=== PATIENT | male | born 1990 | race American Indian/Alaskan Native ===

== ENCOUNTER 2016-05-30 15:46 | Emergency (ER) | payer SELFPAY ==
[2016-05-30 16:00] VITALS: BP 120/70
[2016-05-30] MEDS ORDERED: MOTRIN PO ONE (18:56)
[2016-05-30] MEDS ORDERED: NORCO 5/325 PO ONE (18:56)
--- NOTE | 2016-05-30 18:57 | Emergency Department Report ---
ED Upper Extremity Inj HPI - General Chief Complaint: Extremity Injury, Upper Stated Complaint: POSS BROKEN HAND Time Seen by Provider: 05/30/16 18:55 Source: patient Mode of arrival: Ambulatory Limitations: No Limitations - History of Present Illness Initial Comments: Patient reports right hand pain with swelling after he punched a wall last night Complaint: Injury to:: right Onset/Timin -: days(s) Other Extremity Injury: Hand: Right Other Injuries: none Handedness: right Place: home Severity scale (0 -10): 7 Improves With: immobilization Worsens With: movement of extremity Context: direct blow Associated Symptoms: denies other symptoms Treatments Prior to Arrival: other (none) - Related Data Previous Rx's Medication Instructions Recorded Last Taken Type Ibuprofen [Motrin 800 MG tab] 800 mg PO Q8HR PRN #30 tablet 05/30/16 Unknown Rx Allergies Allergy/AdvReac Type Severity Reaction Status Date / Time No Known Allergies Allergy Unverified 05/30/16 15:54 ED Review of Systems ROS: Stated complaint: POSS BROKEN HAND Other details as noted in HPI Constitutional: denies: chills, diaphoresis, fever, malaise, weakness Respiratory: denies: cough, orthopnea, shortness of breath, SOB with exertion, SOB at rest, stridor, wheezing Cardiovascular: denies: chest pain, palpitations, dyspnea on exertion, orthopnea , edema, syncope, paroxysmal nocturnal dyspnea Musculoskeletal: arthralgia (right hand). denies: back pain, joint swelling, myalgia Hematological/Lymphatic: denies: easy bleeding, easy bruising, swollen glands ED Past Medical Hx - Past Medical History Previous Medical History?: No - Surgical History Past Surgical History?: No - Social History Smoking Status: Current Every Day Smoker Substance Use Type: None - Medications Home Medications: Home Medications Medication Instructions Recorded Confirmed Last Taken Type Ibuprofen [Motrin 800 MG tab] 800 mg PO Q8HR PRN #30 tablet 05/30/16 Unknown Rx ED Physical Exam - General Limitations: No Limitations General appearance: alert, in no apparent distress - Head Head exam: Present: atraumatic, normocephalic - Neck Neck exam: Present: normal inspection, full ROM. Absent: tenderness, meningismus, lymphadenopathy, thyromegaly - Respiratory Respiratory exam: Present: normal lung sounds bilaterally. Absent: respiratory distress, wheezes, rales, rhonchi, stridor, chest wall tenderness, accessory muscle use, decreased breath sounds, prolonged expiratory - Cardiovascular Cardiovascular Exam: Present: regular rate, normal rhythm, normal heart sounds. Absent: systolic murmur, diastolic murmur, rubs, gallop, clicks, JVD, S3, S4 - Expanded Upper Extremity Exam Right Hand Wrist exam: Present: tenderness (with palpation to lateral ), swelling ( dorsum and lateral). Absent: abrasion, laceration, ecchymosis, deformity, crepidus, dislocation, erythema, amputation, nail avulsion, subungual hematoma Neuro motor exam: Present: wrist extension intact, thumb opposition intact, thumb IP flexion intact, thumb adduction intact, fingers 2-5 abduction intact Neurosensory exam: Present: 2-point discrimination, radial nerve intact, ulnar nerve intact, median nerve intact Vascular: Present: normal capillary refill, radial pulse (2+), brachial pulse (2 +), ulnar pulse (2+). Absent: vascular compromise, Pallo, pulse deficit radial art, pulse deficit ulnar art, pulse deficit brachial art - Back Exam Back exam: Present: normal inspection, full ROM - Neurological Exam Neurological exam: Present: alert, oriented X3, CN II-XII intact, normal gait, reflexes normal. Absent: motor sensory deficit - Skin Skin exam: Present: warm, dry, intact, normal color. Absent: rash ED Course Vital Signs 05/30/16 15:52 Temperature 98 F Pulse Rate 74 Blood Pressure 120/70 O2 Sat by Pulse 100 Oximetry - Reevaluation(s) Reevaluation #1: 05/30/16 18:57 pain medication, analgesic and radiology study ordered ED Medical Decision Making - Radiology Data Radiology results: image reviewed - Medical Decision Making During The course of ED, pain medication and radiology studies were ordered. Imaging studies revealed no acute findings or fractures. Patient was sent home with a right wrist Velcro splint, prescriptions for ibuprofen, instructed to follow with selective referrals given at discharge, he verbalize understanding - Differential Diagnosis Right hand pain, Right hand fracture Critical care attestation.: If time is entered above; I have spent that time in minutes in the direct care of this critically ill patient, excluding procedure time. ED Disposition Clinical Impression: Right hand pain Disposition: DISCHARGED TO HOME OR SELFCARE Is pt being admited?: No Does the pt Need Aspirin: No Condition: Stable Instructions: Arthralgia (ED) Additional Instructions: Take medication as directed. Wear wrist splint for comfort. Follow up with selective referrals given at discharge Prescriptions: Ibuprofen [Motrin 800 MG tab] 800 mg PO Q8HR PRN #30 tablet PRN Reason: Pain Referrals: PRIMARY CAREMD [Primary Care Provider] - 3-5 Days IMTIAZ CHIN MD [Staff Physician] - 3-5 Days Forms: Work/School Release Form(ED) Time of Disposition: 20:47
--- NOTE | 2016-05-31 08:25 | XRay Report ---
Right hand: There is a fracture of the distal fifth metacarpal with slight medial angulation of the articular surface. The remainder of the bones joints are unremarkable. There is associated swelling over the ulnar side of the hand and dorsum of the hand. Impression no Traumatic acute fifth metacarpal fracture.
== END 2016-05-30 21:13 | disposition home or self-care (01) ==
LOC: ED 15:46
DX: M79.641 Pain in right hand (principal); F17.200 Nicotine dependence, unspecified, uncomplicated; W22.01XA Walked into wall, initial encounter; Y93.9 Activity, unspecified; Y92.9 Unspecified place or not applicable; Y99.9 Unspecified external cause status

== ENCOUNTER 2016-11-25 17:33 | Emergency (ER) | payer SELFPAY ==
[2016-11-25 18:14] VITALS: BP 119/84
== END 2016-11-26 02:16 | disposition left against medical advice (07) ==
LOC: ED 17:33
DX: R11.2 Nausea with vomiting, unspecified (principal); Z53.21 Procedure and treatment not carried out due to patient leaving prior to being seen by health care provider